=== PATIENT | female | born 1995 | race Caucasian/White ===

== ENCOUNTER 2017-08-16 10:45 | Emergency (ER) | payer OTHER ==
[~2017-08-16] VITALS: Ht 160 cm; Wt 77.1 kg
[~2017-08-16 10:45] MED LIST: BACTRIM DS TAB1 EACH; NAPROXEN DELAY500 M1; PYRIDIUM100 MG PO
[2017-08-16] MEDS ORDERED: BCP PO (10:58)
[2017-08-16] MEDS ORDERED: IBUPROFEN 800800 M1 PO (11:13)
[2017-08-16 11:29] VITALS: BP 123/75
== END 2017-08-16 11:29 | disposition home or self-care (01) ==
LOC: M.ERS 10:45
DX: T24.211A Burn of second degree of right thigh, initial encounter (principal); X08.8XXA Exposure to other specified smoke, fire and flames, initial encounter; Y93.89 Activity, other specified; Y92.89 Other specified places as the place of occurrence of the external cause; Y99.8 Other external cause status